=== PATIENT | female | born 1995 | race American Indian/Alaskan Native ===

== ENCOUNTER 2017-06-28 18:07 | Emergency (ER) | payer OTHER, MEDICAID ==
[~2017-06-28 18:07] MED LIST: CALC1CAP26 PO; DICL-195 PO; INSU100C14 SQ; PARO-242 PO
[2017-06-28] MEDS ORDERED: LANI SUBQ (18:18)
--- NOTE | 2017-06-28 18:33 | ER Report ---
History and Physical Time Seen By MD: 18:32 Hx. of Stated Complaint: CONCUSSION LAST AUGUST. PT HAS BEEN HAVING MIGRAINE HEADACHES, AND REPORTS THAT SHE HAS BEEN HEARING THINGS LIKE PEOPLE CALLING HER NAME OR CONVERSATIONS THAT ARE NOT THERE. HPI/ROS CHIEF COMPLAINT: Syncope 2 HISTORY OF PRESENT ILLNESS: 21-year-old female student from type I diabetic on insulin reports having multiple syncopal episodes over the last several weeks. She had 2 today, which seemed to concern her. She denies recent illness. She denies poor by mouth intake, diarrhea or dysuria. She states her blood sugars have been good. She reports infrequent migraines since a concussion August of last year in 2016. She was seen in the ER at that time had a CT scan of the head which is unremarkable. She notes no palpitations, shortness of breath, nausea or diaphoresis. She denies risk of . Patient reports no injury from her syncopal episodes. REVIEW OF SYSTEMS: Respiratory: No cough, no dyspnea. Cardiovascular: No chest pain, no palpitations. Gastrointestinal: No vomiting, no abdominal pain. Musculoskeletal: No back pain. Allergies: Coded Allergies: No Known Drug Allergies (Unverified , 06/28/17) Home Meds Reported Medications Insulin Glargine (LANTUS) 100 Unit/Ml Soln, 20 UNIT SUBQ QAM, ML 06/28/17 Insulin Aspart (NOVOLOG) 100 Unit/1 Ml Cartridge, 100 UNIT SQ 08/25/16 Reviewed Nurses Notes: Yes Old Medical Records Reviewed: Yes Hx Smoking: No Hx Substance Use Disorder: No Hx Alcohol Use: No Constitutional Vital Sign - Last 24 Hours 06/28/17 06/28/17 06/28/17 06/28/17 18:12 18:14 18:22 18:30 Temp 98.2 Pulse 86 91 Resp 14 B/P (MAP) 132/81 (98) 132/81 110/76 (87) Pulse Ox 97 96 O2 Delivery Room Air 06/28/17 06/28/17 06/28/17 06/28/17 18:37 19:00 19:07 19:22 Pulse 82 84 B/P (MAP) 114/88 (97) Pulse Ox 100 100 99 06/28/17 06/28/17 19:30 19:37 Pulse 89 B/P (MAP) 113/84 (94) Pulse Ox 100 Physical Exam Vital signs stable, afebrile, pulse ox normal General Appearance: The patient is alert, has no immediate need for airway protection and no current signs of toxicity. Skin warm, dry, pink HEENT: Pupils equal and round no injection. TMs normal, oropharynx with moist mucous membranes, no erythema or petechia Respiratory: Chest is non tender, lungs are clear to auscultation. Cardiac: regular rate and rhythm Gastrointestinal: Abdomen is soft and non tender, no masses, bowel sounds normal. Musculoskeletal: Neck: Neck is supple and non tender. No lymphadenopathy, no meningismus Extremities have full range of motion and are non tender. No edema, no calf tenderness Skin: No rashes or lesions. DIFFERENTIAL DIAGNOSIS: After history and physical exam differential diagnosis was considered for syncope including but not limited to vasovagal syncope, arrhythmia, dehydration, and blood loss. Medical Decision Making Data Points Result Diagram: 06/28/17 19006/28/17 190 Laboratory Hematology Test 06/28/17 19:00 Red Blood Count 4.46 M/uL (4.17-5.56) Mean Corpuscular Volume 88.1 fL (80.0-96.0) Mean Corpuscular Hemoglobin 30.3 pg (26.0-33.0) Mean Corpuscular Hemoglobin Concent 34.4 g/dL (32.0-36.0) Red Cell Distribution Width 12.7 % (11.5-14.5) Mean Platelet Volume 8.4 fL (7.2-11.1) Neutrophils (%) (Auto) 46.4 % (39.4-72.5) Lymphocytes (%) (Auto) 40.6 % (17.6-49.6) Monocytes (%) (Auto) 9.6 % (4.1-12.4) Eosinophils (%) (Auto) 2.3 % (0.4-6.7) Basophils (%) (Auto) 1.1 % (0.3-1.4) Nucleated RBC Relative Count (auto) 0.0 /100WBC Neutrophils # (Auto) 2.0 K/uL (2.0-7.4) Lymphocytes # (Auto) 1.8 K/uL (1.3-3.6) Monocytes # (Auto) 0.4 K/uL (0.3-1.0) Eosinophils # (Auto) 0.1 K/uL (0.0-0.5) Basophils # (Auto) 0.0 K/uL (0.0-0.1) Nucleated RBC Absolute Count (auto) 0.00 K/uL Sodium Level 134 mmol/L (137-145) Potassium Level 3.9 mmol/L (3.5-5.0) Chloride Level 99 mmol/L (98-107) Carbon Dioxide Level 26 mmol/L (22-31) Blood Urea Nitrogen 8 mg/dl (7-18) Creatinine 0.60 mg/dl (0.52-1.04) Glomerular Filtration Rate Calc > 60.0 Random Glucose 228 mg/dl (75-110) Calcium Level 9.1 mg/dl (8.4-10.2) Total Bilirubin 0.3 mg/dl (0.2-1.3) Aspartate Amino Transf (AST/SGOT) 15 U/L (0-35) Alanine Aminotransferase (ALT/SGPT) 21 U/L (0-56) Alkaline Phosphatase 65 U/L (0-126) Troponin I < 0.012 ng/ml Total Protein 7.3 gm/dl (6.3-8.2) Albumin 3.9 g/dl (3.5-5.0) Human Chorionic Gonadotropin, Qual Negative (NEGATIVE) Chemistry Test 06/28/17 19:00 White Blood Count 4.4 k/uL (4.5-11.0) Red Blood Count 4.46 M/uL (4.17-5.56) Hemoglobin 13.5 g/dL (12.0-16.0) Hematocrit 39.3 % (34.0-47.0) Mean Corpuscular Volume 88.1 fL (80.0-96.0) Mean Corpuscular Hemoglobin 30.3 pg (26.0-33.0) Mean Corpuscular Hemoglobin Concent 34.4 g/dL (32.0-36.0) Red Cell Distribution Width 12.7 % (11.5-14.5) Platelet Count 282 K/uL (150-450) Mean Platelet Volume 8.4 fL (7.2-11.1) Neutrophils (%) (Auto) 46.4 % (39.4-72.5) Lymphocytes (%) (Auto) 40.6 % (17.6-49.6) Monocytes (%) (Auto) 9.6 % (4.1-12.4) Eosinophils (%) (Auto) 2.3 % (0.4-6.7) Basophils (%) (Auto) 1.1 % (0.3-1.4) Nucleated RBC Relative Count (auto) 0.0 /100WBC Neutrophils # (Auto) 2.0 K/uL (2.0-7.4) Lymphocytes # (Auto) 1.8 K/uL (1.3-3.6) Monocytes # (Auto) 0.4 K/uL (0.3-1.0) Eosinophils # (Auto) 0.1 K/uL (0.0-0.5) Basophils # (Auto) 0.0 K/uL (0.0-0.1) Nucleated RBC Absolute Count (auto) 0.00 K/uL Glomerular Filtration Rate Calc > 60.0 Calcium Level 9.1 mg/dl (8.4-10.2) Total Bilirubin 0.3 mg/dl (0.2-1.3) Aspartate Amino Transf (AST/SGOT) 15 U/L (0-35) Alanine Aminotransferase (ALT/SGPT) 21 U/L (0-56) Alkaline Phosphatase 65 U/L (0-126) Troponin I < 0.012 ng/ml Total Protein 7.3 gm/dl (6.3-8.2) Albumin 3.9 g/dl (3.5-5.0) Human Chorionic Gonadotropin, Qual Negative (NEGATIVE) EKG/Imaging EKG Interpretation 12 lead EK Rhythm: normal sinus rhythm [place]: normal QRS: normal, minimal criteria for LVH noted, likely normal variant ST segments: normal ED Course/Re-evaluation Clinical Indication for ER IV: Hydration, IV Access ED Course Patient was admitted to an examination room. H&P was done. The differential diagnosis was considered. On clinical examination. Patient has stable vital signs. She admits no acute distress. She's had 2 syncopal episodes. She reports numerous syncopal episodes over the last several weeks. Patient's diabetic. She states her sugars have been good. She does not appear dehydrated. She denies risk of . Laboratory studies show normal CBC, electrolytes, except for glucose of 228. Her sodium is slightly low at 134. She is treated with 1 L of normal saline. Her EKG shows no evidence of dysrhythmia. There are no obvious good explanations for her syncopal episodes. I suspect it is vasovagal syncope. She is advised to follow-up with student [facility] for further evaluation and monitoring of these episodes. Decision to Disposition Date: Jun 28, 2017 Decision to Disposition Time: 19:13 Depart Departure Latest Vital Signs Vital Signs Date Time Temp Pulse Resp B/P (MAP) Pulse Ox O2 Delivery O2 Flow Rate FiO2 06/28/17 19:37 89 100 06/28/17 19:30 113/84 (94) 06/28/17 18:14 98.2 14 Room Air Impression: Primary Impression: Syncope Additional Impressions: Type I diabetes mellitus History of concussion Condition: Improved Disposition: HOME OR SELF-CARE Patient Instructions: Syncope (ED) Additional Instructions: Drink plenty of fluids to stay well hydrated Follow-up with your provider over at [facility] within one week Problem Qualifiers Primary Impression: Syncope Syncope type: vasovagal syncope Qualified Codes: R55 - Syncope and collapse Additional Impressions: Type I diabetes mellitus Diabetes mellitus complication status: without complication Qualified Codes: E10.9 - Type 1 diabetes mellitus without complications DELPHINE HERNANDEZ DO Jun 28, 2017 18:33
[2017-06-28] MEDS ORDERED: NS(*) 0.9% 1000 ML BAG 1,000 ML IV ONE (18:39)
[2017-06-28 19:08] LABS: PLATELET COUNT, AUTOMATED 282 K/uL (150-450)
[2017-06-28 19:30] VITALS: BP 113/84
--- NOTE | 2017-06-28 20:24 | EKG ---
FACILITY: [facility] - [place] PATIENT NAME: CARMELITA ROCHA : [id number] MR: [id number]: [id number] EXAM DATE: ORDERING PHYSICIAN: DELPHINE HERNANDEZ TECHNOLOGIST: ELIJAH Richardson Reason : SYNCOPE Blood Pressure : / mmHG Vent. Rate : 088 BPM Atrial Rate : 088 BPM P-R Int : 136 ms QRS Dur : 074 ms QT Int : 352 ms P-R-T Axes : -17 -09 017 degrees QTc Int : 425 ms Normal sinus rhythm Minimal voltage criteria for LVH, may be normal variant Borderline ECG No previous ECGs available Confirmed by DEAN GROSS ([id number]) on 06/29/2017 2:17:58 PM Referred By: MARY Confirmed By:DEAN GROSS
== END 2017-06-28 19:56 | disposition home or self-care (01) ==
LOC: ER 18:32
DX: E10.9 Type 1 diabetes mellitus without complications (principal); R55 Syncope and collapse
CPT/HCPCS: 84484; 84703; 85025; 93005; 96360; 99283; J7030; 82040; 82247; 82310; 82374; 82435; 82565; 82947; 84075; 84132; 84155; 84295; 84450; 84460; 84520